=== PATIENT | male | born 1985 | race Caucasian/White ===

== ENCOUNTER 2017-08-26 09:25 | Inpatient (IN) | payer MEDICAID ==
[~2017-08-26] VITALS: Ht 170.2 cm; Wt 59.1 kg
[2017-08-26 09:29] VITALS: BP 117/78
--- NOTE | 2017-08-26 09:51 | NUR ---
Patient ambulated to bed 11.
--- NOTE | 2017-08-26 09:55 | NUR ---
PATIENT PRESENTS TO ED WITH c/o hematemesis x 3 this am and black stool x 2 episodes last night and this am ; headaches lightheadednes;denies abdominal pain denies etoh abuse, denies trauma/injury;SKIN IS PINK/WARM/DRY; AAOX4 WITH EVEN AND STEADY GAIT; LUNGS CLEAR BL; HR EVEN AND REGULAR; PT DENIES ANY FEVER, CP, SOB, OR COUGH AT THIS TIME; PATIENT STATES PAIN OF 4/10 AT THIS TIME;PATIENT POSITIONED FOR COMFORT; HOB ELEVATED; BEDRAILS UP X2; BED DOWN. ALL MONITORS IN PLACED;ER MD MADE AWARE OF PT STATUS.
[2017-08-26 09:56] LABS: BASOPHILS # (AUTO) 0.2 K/uL (0.00-0.22); BASOPHILS % (AUTO) 1.9 % (0.0-2.0); EOSINOPHILS % (AUTO) 0.2 % (0.0-4.0); HEMATOCRIT 36.1 % (36-52); LYMPHOCYTES # (AUTO) 1.4 K/uL (2.0-11.5); LYMPHOCYTES % (AUTO) 11.4 % (20.5-51.1); MEAN CORPUSCULAR HEMOGLOBIN 30 pg (27-31); MEAN CORPUSCULAR HGB CONC 33 g/dL (33-37); MEAN CORPUSCULAR VOLUME 92 fL (80-94); MONOCYTES # (AUTO) 0.6 K/uL (0.8-1.0); MONOCYTES % (AUTO) 4.7 % (1.7-9.3); NEUTROPHILS % (AUTO) 81.8 % (42.2-75.2); PLATELET COUNT (AUTO) 191 K/uL (140-450); RED BLOOD CELL COUNT(AUTO) 3.94 MIL/uL (4.20-6.10); RED CELL DISTRIBUTION WIDTH 11.4 % (11.6-13.7)
[2017-08-26 10:03] LABS: ANION GAP 7.6 (8-16); CARBON DIOXIDE 31.3 mmol/L (21-32); CREATININE 0.9 mg/dL (0.7-1.3); POTASSIUM 3.9 mmol/L (3.5-5.1)
[2017-08-26 10:09] LABS: ALBUMIN 3.9 g/dL (3.4-5.0); TOTAL BILIRUBIN 0.2 mg/dL (0.0-1.0); WHITE BLOOD COUNT (AUTO) 12.2 K/uL (4.8-10.8)
[2017-08-26 10:14] LABS: APPEARANCE,URINE CLEAR (CLEAR); BILIRUBIN,URINE NEGATIVE (NEGATIVE); BLOOD, URINE TRACE-L (NEGATIVE); COLOR,URINE YELLOW (YELLOW); LEUKOCYTE ESTERASE ,URINE NEGATIVE (NEGATIVE); NITRITE, URINE NEGATIVE (NEGATIVE); UGLUCOSE NEGATIVE (NEGATIVE)
--- NOTE | 2017-08-26 10:15 | NUR ---
DR RACHEL AT BEDSIDE.
[2017-08-26 10:22] LABS: RBC,URINE 0-5 (RARE) /HPF (0-5); WBC,URINE 0-5 (RARE) /HPF (0-5)
[2017-08-26 10:32] LABS: PROTHROMBIN TIME 10.5 secs (10.8-13.4)
[2017-08-26] MEDS ORDERED: NACL 0.9% 1,000 ML IV ONE (10:50)
[2017-08-26] MEDS ORDERED: HYDROcodone/APAP 7.5/325 MG 1 TAB PO PRN (10:50)
[2017-08-26] MEDS ORDERED: ONDANSETRON 4 MG/2 ML VIAL IVP ONE (10:50)
--- NOTE | 2017-08-26 11:12 | NUR ---
RECEIVED REPORT FROM DALY KELLER RN. WILL GET ROOM READY AND AWAIT PT'S ARRIVAL.
--- NOTE | 2017-08-26 11:16 | NUR ---
Patient will be admitted to care of DR CHRISTIANSON. Admited to TELE. Will go to [id number]. Belongings list completed. Report to BOUCHRA ZUNIGA.
[2017-08-26] MEDS ORDERED: MORPHINE SULFATE 2 MG/ML SYR IVP PRN (11:25)
[2017-08-26 11:26] LABS: CHOL/HDL RATIO 4.7 (1-4.5); FREE T4 (FREE THYROXINE) 0.95 ng/dL (0.76-1.46); MAGNESIUM 1.8 mg/dL (1.8-2.4); THYROID STIMULATING HORMONE 1.09 uIU/mL (0.34-3.74)
--- NOTE | 2017-08-26 11:29 | NUR ---
CRITICAL LAB: LACTIC ACID 2.3. NOTIFIED DR. GONZALEZ. REQUESTED REPEAT
[2017-08-26] MEDS ORDERED: PANTOPRAZOLE 40 MG INJ VIAL IVP SCH (11:30)
[2017-08-26 11:33] LABS: BARBITURATE, URINE NEG. ng/ml (NEG <=200); BENZODIAZEPINE, URINE NEG. ng/mL (NEG <=200); CANNABINOID, URINE NEG. ng/mL (NEG <=50); COCAINE, URINE NEG. ng/mL (NEG <=300); OPIATE, URINE NEG. ng/mL (NEG <=2000); PHENCYCLIDINE SCREEN,URINE NEG. ng/mL (NEG <=25)
--- NOTE | 2017-08-26 11:40 | NUR ---
PT ARRIVED ON UNIT WITH 2 ER NURSES. PT AMBULATED FROM GURNEY TO BED. PT IS ACCOMPANIED BY SPOUSE AT BEDSIDE. PT UZBEK SPEAKING. SPEAKS LITTLE YI. INTRODUCED MYSELF AND UPDATED THE BOARD. MRSA SCREENING DONE, CHANGED SOCKS TO BROWN, ADMINISTERED TELE MONITOR, PUT NEW ID BAND ON. SKIN INTACT. V/S WITHIN NORMAL RANGE. IV ON L AC 20GSL. DR GONZALZE HERE TO ASSESS PT USING BLUE PHONE FOR INTERPRETIVE ASSISTANCE. WILL START ON ADMISSION PROCESS.
[2017-08-26 12:00] VITALS: BP 112/69
[2017-08-26] MEDS: NACL 0.9% 1,000 ML IV SCH ×2 (13:44→18:50)
--- NOTE | 2017-08-26 13:55 | NUR ---
ADMINISTERED NS, SCHEDULED MED, PAIN MED FOR BRANNON, AND ABX. PT TOLERATED WELL. AT BEDSIDE. WILL CONTINUE TO MONITOR PT.
[2017-08-26 16:00] VITALS: BP 92/62
--- NOTE | 2017-08-26 16:43 | NUR ---
PT HAD A GOOD NAP. AT BEDSIDE. NO MORE BRANNON. DENIES ANY NAUSEA OR PAIN. REMINDED PT NOT TO DRINK ANYTHING, EVEN WATER. PT IS NPO EXCEPT MEDS. PT VERBALIZED UNDERSTANDING.
[2017-08-26] MEDS: ONDANSETRON 4 MG/2 ML VIAL IVP PRN (18:04)
--- NOTE | 2017-08-26 18:35 | NUR ---
PT VISITING WITH FAMILY. NO LONGER NAUSEATED AFTER ADMINISTRATION OF ZOFRAN. THEY ARE WAITING FOR DR CHEN, GI CONSULT.
--- NOTE | 2017-08-26 19:25 | NUR ---
ENDORSED PT TO STAMP PAD FINISHER NURSE AT BEDSIDE FOR CONTINUITY OF CARE. PT WITH FAMILY AND FINALLY EATING CLEAR LIQ DIET. WILL BE NPO AT MIDNIGHT. PT AWARE. PT IN STABLE CONDITION.
--- NOTE | 2017-08-26 19:34 | NUR ---
RECEIVED FROM AM RN IN BED AWAKE AND ALERT. FAMILY MEMBERS IN HERE VISITING. ABLE TO UNDERSTAND A LITTLE DOMINICAN. RE-ORIENTED TO CALL LIGHT USE FOR ANY DOLOR OR HELP HE MAY NEED. "SI" TELEMETRY MONITORING. IVF SITE INTACT AND NO INFILTRATION NOTED. ENCOURAGED TO SHOW ME BM TO CHECK FOR BLOOD/CARLI PRESENCE. "SI"
--- NOTE | 2017-08-26 19:50 | NUR ---
ENDORSED TO ANOTHER PM NURSE FOR CONTINUITY OF CARE. AWAKE AND ALERT. FAMILY MEMBERS STILL IN HERE.
--- NOTE | 2017-08-26 19:55 | NUR ---
RECEIVED REPORT FROM ANOTHER GLAUCOMA SPECIALIST NURSE. AAOX4. PT LYING IN BED. FAMILY AT BEDSIDE. IV TO LEFT AC #20G, NS @ 125ML/HR. DISCUSSED PLAN OF CARE. PT AND FAMILY VERBALIZED UNDERSTANDING. SCD'S APPLIED. CALL LIGHT WITHIN REACH. WILL CONTINUE TO MONITOR,
[2017-08-26 20:00] VITALS: BP 98/63
[2017-08-26] MEDS: DOCUSATE SODIUM 100 MG GELCAP PO SCH (20:52)
--- NOTE | 2017-08-26 22:05 | NUR ---
PT SLEEPING. NO SIGNS OF DISTRESS. CALL LIGHT WITHIN REACH.
[2017-08-27] VITALS (9 sets, daily range): BP systolic 85–110; BP diastolic 40–68
--- NOTE | 2017-08-27 | NUR ---
V/S TAKEN. NO C/O PAIN. CALL LIGHT WITHIN REACH.
[2017-08-27] MEDS: NACL 0.9% 1,000 ML IV SCH ×3 (02:50→18:47)
--- NOTE | 2017-08-27 03:10 | NUR ---
PT SLEEPING. NO SIGNS OF DISTRESS.
--- NOTE | 2017-08-27 07:20 | NUR ---
ENDORSED PT TO DAY SHIFT NURSE. PT IN STABLE CONDITION.
--- NOTE | 2017-08-27 07:21 | NUR ---
REPORT RECEIVED FROM SIZE STAMPER, PT SLEEPING QUIETLY IN NAD, RESP EVEN UNLABORED SKIN WARM DRY COLOR SLIGHTLY PALE, DENIES PAIN OR DISCOMFORT, ABD SOFT, NON TENDER, DENIES N/V, DENIES BLOODY BM, NO ACTIVE BLEEDING NOTED, PLAN OF CARE DISCUSSED WITH PT, NO QUESTIONS OR CONCERNS VOICED AT THIS TIME, PT ON REGIONAL LOSS PREVENTION MANAGER, SIDE RAILS UP, CALL SURESH WITHIN REACH, BED LOCKED IN LOS POSITION, AT BEDSIDE, WILL CONTINUE TO MONITOR.
[2017-08-27 08:05] LABS: BASOPHILS # (AUTO) 0.2 K/uL (0.00-0.22); BASOPHILS % (AUTO) 2.4 % (0.0-2.0); EOSINOPHILS # (AUTO) 0.1 K/uL (0-0.4); EOSINOPHILS % (AUTO) 0.5 % (0.0-4.0); HEMOGLOBIN 7.1 g/dL (12.0-18.0); LYMPHOCYTES # (AUTO) 1.8 K/uL (2.0-11.5); LYMPHOCYTES % (AUTO) 17.6 % (20.5-51.1); MEAN CORPUSCULAR HEMOGLOBIN 31 pg (27-31); MEAN CORPUSCULAR HGB CONC 34 g/dL (33-37); MEAN CORPUSCULAR VOLUME 92 fL (80-94); MONOCYTES # (AUTO) 0.6 K/uL (0.8-1.0); MONOCYTES % (AUTO) 5.8 % (1.7-9.3); NEUTROPHILS # (AUTO) 7.6 K/uL (1.8-7.7); NEUTROPHILS % (AUTO) 73.7 % (42.2-75.2); PLATELET COUNT (AUTO) 129 K/uL (140-450); RED BLOOD CELL COUNT(AUTO) 2.28 MIL/uL (4.20-6.10); RED CELL DISTRIBUTION WIDTH 11.7 % (11.6-13.7); WHITE BLOOD COUNT (AUTO) 10.3 K/uL (4.8-10.8)
[2017-08-27] MEDS: ONDANSETRON 4 MG/2 ML VIAL IVP PRN ×2 (08:10→20:31)
[2017-08-27] MEDS: DOCUSATE SODIUM 100 MG GELCAP PO SCH ×2 (08:11→20:30)
[2017-08-27] MEDS: LACTOBACILLUS RHAMNOSUS GG 1 EACH CAP PO SCH (08:11)
[2017-08-27 08:16] LABS: HEMATOCRIT 20.9 % (36-52)
--- NOTE | 2017-08-27 08:20 | NUR ---
CRITICAL LAB AND PT CONDITION REPORTED TO DR DUBON, H/H 7.1/20.9, PT C/O NAUSEA, PT APPEARS PALE, BP 103/56, HR 90, NO ACTIVE BLEEDING OR VOMITING AT THIS TIME, MEDICATED WITH ZOFRAN AND SCHEDULED PROTONIX AT THIS TIME. WILL CONTINUE TO MONITOR.
[2017-08-27] MEDS ORDERED: PANTOPRAZOLE 40 MG INJ VIAL IVP SCH ×2 (09:00→21:00)
--- NOTE | 2017-08-27 09:25 | NUR ---
PT RESTING QUIETLY IN NAD, RESP EVEN UNALBORED, STATES NAUSEA HAS IMPROVED, AT BEDSIDE, WILL CONTINUE TO MONITOR.
[2017-08-27 10:00] LABS: ANION GAP 6.3 (8-16); CARBON DIOXIDE 27.8 mmol/L (21-32); CREATININE 0.9 mg/dL (0.7-1.3); POTASSIUM 4.1 mmol/L (3.5-5.1)
[2017-08-27 10:05] LABS: MAGNESIUM 1.7 mg/dL (1.8-2.4); PHOSPHORUS 2.3 mg/dL (2.5-4.9)
--- NOTE | 2017-08-27 10:48 | NUR ---
PATIENT HAS BEEN SCREENED AND CATEGORIZED MODERATE NUTRITION RISK. PATIENT WILL BE SEEN WITHIN 3-5 DAYS OF ADMISSION. 08/29/2017 - 08/31/2017 JANNET SAMUEL MBA, RD
[2017-08-27] MEDS: ACETAMINOPHEN 325 MG TAB PO PRN ×2 (12:04→20:31)
[2017-08-27] MEDS ORDERED: MAG SULF 2000 MG/WATER PREMIX 50 ML IV SCH (12:30)
[2017-08-27] MEDS ORDERED: SODIUM PHOS / POTASSIUM PHOS 1 PKT PDR PO SCH (12:30)
--- NOTE | 2017-08-27 13:25 | NUR ---
DR DAILEY CALLED, HE PLANS TO TAKE PT TO OR FOR EGD NOW, PT UPDATED WITH PLAN, PT VERBALIZED UNDERSTANDING AND AGREES WITH PLAN, FAMILY AT BEDSIDE, ALL PERSONAL CLOTHING REMOVED AND READY FOR EGD, PT NPO SINCE YESTERDAY.
--- NOTE | 2017-08-27 13:35 | NUR ---
PT TAKEN TO EGD IN HOSPITAL BED WITH OR NURSE.
[2017-08-27] MEDS: MIDAZOLAM 2 MG/2 ML VIAL IV ONE ×2 (13:50→14:00)
[2017-08-27] MEDS ORDERED: fentaNYL 0.05 MG/ML VIAL ONE (13:51)
[2017-08-27] MEDS ORDERED: diphenhydrAMINE 50 MG/ML VIAL ONE (13:52)
[2017-08-27] MEDS ORDERED: MIDAZOLAM 2 MG/2 ML VIAL ONE (13:52)
[2017-08-27] MEDS: fentaNYL 0.05 MG/ML VIAL IVP ONE ×2 (13:53→14:00)
--- NOTE | 2017-08-27 14:45 | NUR ---
PT BACK FROM EDG.
--- NOTE | 2017-08-27 15:02 | NUR ---
BP SLIGHTLY LOW 85/52, HR 88, REPEAT 92/40, DR SPENCE MADE AWARE, REPEATED WITH THE OTHER ARM BP 97/59, NO NEW ORDERS AT THIS TIME, PT AWAKE ALERT, SPEAKING CLEARLY IN NAD, STARTED ON CLEAR LIQ.
--- NOTE | 2017-08-27 16:00 | NUR ---
PT RESTING QUIETLY, AWAKE ALERT, RESP EVEN UNLABORED, SMILING WITH , DENIES N/V, DENIES PAIN, DENIES ANY IMMEDIATE NEEDS, WILL CONTINUE TO MONITOR.
--- NOTE | 2017-08-27 18:30 | NUR ---
PT SITTING UP IN BED WITH , PT DENIES PAIN OR DISCOMFORT, DENIES NAUSEA, ABLE TO TOLERATE ICE CREAM FROM DINNER TRAY WITHOUT PROBLEM, NO ACTIVE BLEEDING, PT REMAINS ON SENIOR CONTRACT SPECIALIST, SAFETY MEASURES IN PLACE, WILL CONTINUE TO MONITOR.
--- NOTE | 2017-08-27 19:21 | NUR ---
REPORT GIVEN TO UNLEAVENED DOUGH MIXER NURSE, PT IN STABLE CONDITION.
--- NOTE | 2017-08-27 19:30 | NUR ---
RECEIVED PT IN THE BED.AWAKE ALERT AND ORIENTED.RESP.UNLABORED IN RA.LUNG CLEAR.IVF INFUSING WELL.PLAN OF CARE DISCUSSED WITH PT.HE VERBALIZED UNDERSTANDINGS.NO C/O PAIN NOW.TELE IS ON AND SHOWING SR.CALL LIGHT WITHIN REACH.
[2017-08-27] MEDS: PANTOPRAZOLE 40 MG TABEC PO SCH (20:31)
--- NOTE | 2017-08-27 20:55 | NUR ---
HAD C/O NAUSEA AND BRANNON.TYLENOL PO FOR BRANNON AND ZOFRAN IV FOR N/V GIVEN.WILL REASSESS PT LATER.
[2017-08-28] VITALS: BP 100/60
--- NOTE | 2017-08-28 01:08 | NUR ---
NO C/O PAIN NOW.HR IS SR.NO N/V AFTER ZOFRAN GIVEN EARLIER.IVF IS IN PROGRESS.
[2017-08-28] MEDS: NACL 0.9% 1,000 ML IV SCH (02:23)
[2017-08-28 04:00] VITALS: BP 110/57
--- NOTE | 2017-08-28 04:00 | NUR ---
SLEEPING W/O S/S OF ANY DISTRESS. CALL LIGHT WITHIN REACH.HR IS SR.
[2017-08-28] MEDS: ACETAMINOPHEN 325 MG TAB PO PRN (05:00)
--- NOTE | 2017-08-28 06:35 | NUR ---
SLEPT WELL.HAD C/O BRANNON TYLENOL PO GIVEN EARLIER.NO C/O PAIN NOW.HR IS SR.VS STABLE.IVF INFUSING WELL.CALL LIGHT IN REACH.
[2017-08-28 06:51] LABS: BASOPHILS # (AUTO) 0.2 K/uL (0.00-0.22); BASOPHILS % (AUTO) 1.4 % (0.0-2.0); EOSINOPHILS % (AUTO) 0.4 % (0.0-4.0); LYMPHOCYTES # (AUTO) 1.6 K/uL (2.0-11.5); LYMPHOCYTES % (AUTO) 13.4 % (20.5-51.1); MEAN CORPUSCULAR HEMOGLOBIN 31 pg (27-31); MEAN CORPUSCULAR HGB CONC 34 g/dL (33-37); MEAN CORPUSCULAR VOLUME 91 fL (80-94); MONOCYTES # (AUTO) 0.7 K/uL (0.8-1.0); MONOCYTES % (AUTO) 6.1 % (1.7-9.3); NEUTROPHILS # (AUTO) 9.1 K/uL (1.8-7.7); NEUTROPHILS % (AUTO) 78.7 % (42.2-75.2); PLATELET COUNT (AUTO) 127 K/uL (140-450); RED BLOOD CELL COUNT(AUTO) 1.97 MIL/uL (4.20-6.10); RED CELL DISTRIBUTION WIDTH 11.8 % (11.6-13.7); WHITE BLOOD COUNT (AUTO) 11.6 K/uL (4.8-10.8)
[2017-08-28 07:06] LABS: ANION GAP 7.9 (8-16); CARBON DIOXIDE 27.7 mmol/L (21-32); CREATININE 0.7 mg/dL (0.7-1.3); POTASSIUM 3.6 mmol/L (3.5-5.1)
[2017-08-28 07:09] LABS: HEMOGLOBIN 6.2 g/dL (12.0-18.0)
[2017-08-28 07:11] LABS: PHOSPHORUS 2.2 mg/dL (2.5-4.9)
--- NOTE | 2017-08-28 07:23 | NUR ---
AT 0710 RECEIVED RESULT OF H/H=6.2/18.0.REPORTED TO RESIDENT AT 0715.
--- NOTE | 2017-08-28 07:31 | NUR ---
RECEIVED REPORT FROM NIGHT RN AT BEDSIDE, PT AWAKE IN BED, A/OX4, PT DENIES ANY PAIN, NO S/S OF ACUTE DISTRESS, IV PATENT AND INTACT, PT ON RA, SAFETY PRECAUTIONS TAKEN, CALL LIGHT WITHIN REACH, WILL CONTINUE TO MONITOR. Addendum: 08/28/17 at 0754 by Mahamed Curtis RN PLAN OF CARE REVIEWED WITH PT, PT VERBALIZED UNDERSTANDING.
[2017-08-28 07:57] VITALS: BP 102/53
[2017-08-28] MEDS ORDERED: FERROUS SULFATE 325 MG TABEC PO SCH (08:00)
[2017-08-28] MEDS: DOCUSATE SODIUM 100 MG GELCAP PO SCH (08:50)
[2017-08-28] MEDS: LACTOBACILLUS RHAMNOSUS GG 1 EACH CAP PO SCH (08:50)
[2017-08-28] MEDS: PANTOPRAZOLE 40 MG TABEC PO SCH (08:50)
--- NOTE | 2017-08-28 08:57 | NUR ---
DUE MEDICATIONS GIVE WITH EDUCATION, PT VERBALIZED UNDERSTANDING, PT TOLERATED WELL, CALL LIGHT WITHIN REACH, WILL CONTINUE TO MONITOR.
[2017-08-28] MEDS ORDERED: ASCORBIC ACID 500 MG TAB PO SCH ×2 (09:00→17:00)
[2017-08-28] MEDS ORDERED: FERRIC GLUCONATE 125 MG in NACL 0.9% 100 ML IV SCH (09:00)
[2017-08-28] MEDS ORDERED: SODIUM PHOS / POTASSIUM PHOS 1 PKT PDR PO SCH (09:00)
[2017-08-28] MEDS ORDERED: PANT40EC PO ×2 (10:40→12:51)
[2017-08-28] MEDS ORDERED: ASCO500T45 PO ×2 (10:42→12:50)
[2017-08-28] MEDS ORDERED: FERR325E14 PO ×2 (10:42→12:49)
--- NOTE | 2017-08-28 10:54 | NUR ---
PT AMBULATED AROUND UNIT WITHOUT ASSISTANCE, PT TOLERATED WELL, PT DENIES DIZZINESS/WKNS.
[2017-08-28 11:28] VITALS: BP 110/64
[2017-08-28 11:36] VITALS: BP 110/64
[2017-08-28 12:09] LABS: MONOCYTES # (AUTO) 0.7 K/uL (0.8-1.0); MONOCYTES % (AUTO) 6.2 % (1.7-9.3); NEUTROPHILS # (AUTO) 8.8 K/uL (1.8-7.7); PLATELET COUNT (AUTO) 145 K/uL (140-450); RED CELL DISTRIBUTION WIDTH 11.7 % (11.6-13.7)
[2017-08-28 12:11] LABS: BASOPHILS # (AUTO) 0.1 K/uL (0.00-0.22); BASOPHILS % (AUTO) 1.1 % (0.0-2.0); EOSINOPHILS % (AUTO) 0.2 % (0.0-4.0); LYMPHOCYTES # (AUTO) 2.3 K/uL (2.0-11.5); LYMPHOCYTES % (AUTO) 19.4 % (20.5-51.1); MEAN CORPUSCULAR HEMOGLOBIN 32 pg (27-31); MEAN CORPUSCULAR HGB CONC 35 g/dL (33-37); MEAN CORPUSCULAR VOLUME 92 fL (80-94); NEUTROPHILS % (AUTO) 73.1 % (42.2-75.2); RED BLOOD CELL COUNT(AUTO) 2.04 MIL/uL (4.20-6.10); WHITE BLOOD COUNT (AUTO) 11.9 K/uL (4.8-10.8)
[2017-08-28 12:24] LABS: HEMATOCRIT 18.6 % (36-52); HEMOGLOBIN 6.5 g/dL (12.0-18.0)
--- NOTE | 2017-08-28 12:55 | NUR ---
DISCHARGE INSTRUCTION GIVEN TO PT VIA CITIZEN [place] SPEAKING RN, PATIENT AND FAMILY VERBALIZED UNDERSTANDING, PT TOLERATED LUNCH REGULAR DIET, PT DENIES N/V, NO ABD PAIN, IV DC AND CATH TIP INTACT, BLEEDING CONTROLLED, AWAITING PHARMACY CHANGES FOR PRESCRIPTION MEDICATION.
--- NOTE | 2017-08-28 13:05 | NUR ---
PRESCRIPTION SENT TO [facility] IN [place] PER DR SPENCE, PT DC HOME, ESCORTED OUT VIA WHEELCHAIR WITH FAMILY.
[2017-08-28] MEDS ORDERED: FERR-193 PO (16:34)
[2017-08-28] MEDS ORDERED: PANT40EC28 PO (16:34)
[2017-08-28] MEDS ORDERED: [UNRECOGNIZED DRUG - CODE] PO (16:34)
[2017-08-30 06:28] LABS: FOLIC ACID 14.9 ng/mL (>3.0)
== END 2017-08-28 13:05 | disposition home or self-care (01) | DRG 242 ==
LOC: MED 09:25 → MTU 10:57
PROVIDERS: ADMIT Family Medicine; ATTEND Family Medicine
PROC: 0DB68ZX Excision of Stomach, Via Natural or Artificial Opening Endoscopic, Diagnostic (ICD-10-PCS; principal; 2017-08-27 12:50)
DX: K22.6 Gastro-esophageal laceration-hemorrhage syndrome (principal); N17.0 Acute kidney failure with tubular necrosis; D69.6 Thrombocytopenia, unspecified; R65.10 Systemic inflammatory response syndrome (SIRS) of non-infectious origin without acute organ dysfunction; E83.39 Other disorders of phosphorus metabolism; K29.70 Gastritis, unspecified, without bleeding; K22.10 Ulcer of esophagus without bleeding; D64.9 Anemia, unspecified; D72.829 Elevated white blood cell count, unspecified; G43.909 Migraine, unspecified, not intractable, without status migrainosus
CPT/HCPCS: 36415; 71010; 80048; 80053; 80305; 81001; 82150; 82607; 82728; 82746; 83036; 83540; 83605; 83690; 83735; 83880; 84100; 84439; 84443; 84484; 85025; 85045; 85610; 85730; 86677; 87040; 87081; 87086; 93005; 96361; 96374; 99285; C9113; J0696; J1200; J2250; J2405; J2916; J3010; J3475; J7030; J7060; Q0092